=== PATIENT | male | born 1995 | race Hispanic/Latino ===

== ENCOUNTER 2017-08-15 21:19 | Emergency (ER) | payer OTHER ==
[~2017-08-15] VITALS: Ht 172.7 cm; Wt 78.2 kg
[2017-08-15] MEDS ORDERED: ZOFRAN ODT4 MG PO (23:03)
[2017-08-15 23:35] VITALS: BP 116/72
== END 2017-08-15 23:36 | disposition home or self-care (01) ==
LOC: EME 21:19 → EXP 21:19
DX: R10.9 Unspecified abdominal pain (principal); R11.2 Nausea with vomiting, unspecified; R19.7 Diarrhea, unspecified; F17.200 Nicotine dependence, unspecified, uncomplicated
CPT/HCPCS: 99281; 99283

== ENCOUNTER 2018-01-26 22:46 | Emergency (ER) | payer OTHER ==
[~2018-01-26] VITALS: Ht 172.7 cm; Wt 84.0 kg
[~2018-01-26 22:46] MED LIST: ZOFRAN ODT4 MG PO
[2018-01-27] MEDS ORDERED: TRAMADOL HCL50 MG PO (01:29)
[2018-01-27] MEDS ORDERED: MOTRIN600 MG PO (01:29)
[2018-01-27 01:54] VITALS: BP 174/103
== END 2018-01-27 01:55 | disposition home or self-care (01) ==
LOC: EME 22:46
PROC: 2W3CX1Z Immobilization of Right Lower Arm using Splint (ICD-10-PCS; principal; 2018-01-27)
DX: S62.390A Other fracture of second metacarpal bone, right hand, initial encounter for closed fracture (principal); S60.412A Abrasion of right middle finger, initial encounter; S50.811A Abrasion of right forearm, initial encounter; W22.09XA Striking against other stationary object, initial encounter; F17.200 Nicotine dependence, unspecified, uncomplicated
CPT/HCPCS: 73130; 99281; 99284